=== PATIENT | male | born 1975 | race Two or more races ===

== ENCOUNTER → 2018-08-30 08:46 | Outpatient (CLI) | payer OTHER, SELFPAY ==
--- NOTE | 2018-08-30 08:49 | US_ITS ---
HISTORY: CKD 3 DIFFICULTY URINATING TECHNIQUE: Cardenas scale and color doppler sagittal and transverse images were obtained of the kidneys. COMPARISON: None FINDINGS: Both kidneys show normal size and echogenicity. Renal measurements are approximate as follows: Right kidney 10.4 x 5.2 x 4.5 cm Left kidney 10.2 x 6.2 x 5.7 cm Renal cortical thickness is preserved bilaterally. No hydronephrosis, renal mass, or gross renal calculi. Limited survey of the pelvis was performed with attention urinary bladder. Prevoid bladder volume is 215 cc and postvoid volume is 39 cc. No free pelvic fluid. US/Kidney and Bladder IMPRESSION: 1. Normal renal ultrasound. 2. 39 cc postvoid urinary bladder residual. at [id number] Reported and signed by: Seferino Mccarthy MD Electronically Signed: Seferino Mccarthy, at 3:33 EST Tel , Service support ,
--- OUTSIDE RECORDS SUMMARY | 2018-10-25 14:31 | XMS RPT_ITS ---
:1975 Author Organization [facility] Care Team Providers Name Role Phone ROB IZAGUIRRE Referring Unavailable ROB IZAGUIRRE Referring Unavailable ROB IZAGUIRRE Attending Unavailable ROB IZAGUIRRE Referring Unavailable ROB IZAGUIRRE Referring Unavailable ROB IZAGUIRRE Attending Unavailable ROB IZAGUIRRE Referring Unavailable ROB IZAGUIRRE Attending Unavailable ROB IZAGUIRRE Referring Unavailable ROB IZAGUIRRE Attending Unavailable ROB IZAGUIRRE Referring Unavailable ROB IZAGUIRRE Attending Unavailable Jeremi Noriega Attending Unavailable Jeremi Noriega Referring Unavailable Janine Izaguirre Primary Care Unavailable JANINE IZAGUIRRE Primary Care Unavailable CHERELLE HUBBARD Attending Unavailable PROBLEMS PROBLEMS DATE TYPE CONDITION / CODE ATTENDING STATUS SOURCE 06/14/2017 Active Essential NA Active [place] (primary) [facility] Main hypertension / [place] I10(ICD-10) Repository 04/12/2018 Active Hyperkalemia / NA Active [place] E87.5(ICD-10) Clinic Main [place] Repository 04/12/2018 Active Unspecified NA Active [place] adverse effect of Clinic Main drug or [place] medicament, Repository initial encounter / T88.7XXA(ICD-10) 03/24/2018 Active Unspecified NA Active [place] abdominal pain / Clinic Main R10.9(ICD-10) [place] Repository 03/24/2018 Active Abnormal weight NA Active [place] loss / Clinic Main R63.4(ICD-10) [place] Repository 03/24/2018 Active Tachycardia, NA Active [place] unspecified / Clinic Main R00.0(ICD-10) [place] Repository 03/09/2018 Admitting Dizziness and CHERELLE HUBBARD [facility] diagnosis giddiness / E Repository R42(ICD-9) 03/09/2018 Final diagnosis Syncope and CHERELLE HUBBARD [facility] (discharge) collapse / E Repository R55(ICD-9) 03/09/2018 Final diagnosis Essential CHERELLE HUBBARD [facility] (discharge) (primary) E Repository hypertension / I10(ICD-9) 03/09/2018 Final diagnosis Tobacco use / CHERELLE HUBBARD [facility] (discharge) Z72.0(ICD-9) E Repository 03/09/2018 Final diagnosis Allergy status to CHERELLE HUBBARD [facility] (discharge) analgesic agent E Repository status / Z88.6(ICD-9) PROCEDURES PROCEDURES No Procedure Records FoundRESULTS RESULTS KIDNEY AND BLADDER Observed: 08/30/2018 Status: F Source: [place] 8:49 AM [facility] REPOSITORY [facility] Imaging Services [address] [place] [address] Kidney and Bladder MR#: [id number] Acct: [id number] Name: ANTWON PRADHAN Rep #: [id number] : 1975 M 42 From: Seferino Mccarthy MD PCP: Tamara AGUILLONJanine Status: REG CL Study: Kidney and Bladder Date of Exam: 08/30/18 Exam# [id number] Ordering Dr: Jeremi Noriega MD HISTORY: CKD 3 DIFFICULTY URINATING TECHNIQUE: Cardenas scale and color doppler sagittal and transverse images were obtained of the kidneys. COMPARISON: None FINDINGS: Both kidneys show normal size and echogenicity. Renal measurements are approximate as follows: Right kidney 10.4 x 5.2 x 4.5 cm Left kidney 10.2 x 6.2 x 5.7 cm Renal cortical thickness is preserved bilaterally. No hydronephrosis, renal mass, or gross renal calculi. Limited survey of the pelvis was performed with attention urinary bladder. Prevoid bladder volume is 215 cc and postvoid volume is 39 cc. No free pelvic fluid. US/Kidney and Bladder IMPRESSION: 1. Normal renal ultrasound. 2. 39 cc postvoid urinary bladder residual. at 0335 Reported and signed by: Seferino Mccarthy MD Electronically Signed: Seferino Mccarthy, at 3:33 EST Tel , Service support , CC: Jeremi Noriega MD; Janine Izaguirre MD Chicken Picker: Signed CNNURSE Observed: 07/31/2018 Status: COMPLETED Source: [place] 10:40 AM [facility] REPOSITORY Nurse Visit (FPWADS) ANTWON PRADHAN ([id number]) 1975 M Date Time Provider Department 07/31/18 10:40 AM [facility] During your visit today, we recorded the following information about you: Referring Provider: ROB IZAGUIRRE [[id number]] Allergies As of Date: 07/31/2018 Noted Allergy Reaction ASA (ASPIRIN) 06/16/2016 4 - Hives HCTZ (HYDROCHLOROTHIAZIDE) 04/07/2018 5 - Intolerance Comments: Vague malaise. Date Reviewed: 03/24/2018 Reviewed by: Judy Sheldon Ma - Fully Assessed Reason for Visit: flu vaccine [Other] Primary Visit Diagnosis:Need for vaccination [Z23] Order(s):ADMIN OF INFLUENZA VACCINE [[id number]] Order #: [id number]: 1 INFLUENZA VACCINE QUADRIVALENT AGE 3 YRS PLUS + IM [[id number]] Order #: [id number] Prescriptions as of 07/31/2018 Sig: METOPROLOL SUCCINATE ER 50 MG* Take 1 tablet by mouth once d* CHLORTHALIDONE 25 MG TABLET Take 1 tablet by mouth once d* PAROXETINE 10 MG TABLET Take 1 tablet by mouth once d* BENZONATATE 100 MG CAPSULE Take 1-2 capsules by mouth th* Patient not taking: Reported on 03/15/2018 IBUPROFEN 200 MG TABLET Take 200 mg by mouth every 6 * BLOOD PRESSURE MONITOR KIT Large adult cuff: Dx: (I10) E* Problem List As Of Date 07/31/2018 Noted Resolved Essential hypertension [I10] INVALID FOR* Adjustment disorder with mixed anxiety and depr*INVALID FOR* Encounter Status:Closed by TYREL DICK MA on 07/31/18 BASIC METABOLIC PANL Collected: 04/12/2018 Status: F Source: [place] 7:40 AM [facility] REPOSITORY TYPE CODE TESTS RESULT OUT OF REFERENCE UNITS RANGE LAB GLU 74-99 mg/dL High Glucose 105 Result Comment: The [place] Diabetes [employer] (ADA) provides guidance for cutoff values for fasting glucose and random glucose. The ADA defines fasting as no caloric intake for at least 8 hours. Fas ting plasma glucose results between 100 to 125 mg/dL indicate increased risk for diabetes (prediabetes). Fasting plasma glucose results greater than or equal to 126 mg/dL meet the criteria for diagnosis of diabetes. In the absence of unequivocal hyperglycemia, results should be confirmed by repeat testing. In a patient with classic symptoms of hyperglycemia or hyperglycemic crisis, random plasma glucose results greater than or equal to 200 mg/dL meet the criteria for diagnosis of diabetes. Reference: Standards of Medical Care in Diabetes 2016, [place] [employer]. Diabetes Care. 2016.39(Suppl 1). LAB BUN 9-24 mg/dL BUN 14 LAB CRET 0.73-1.22 mg/dL Creatinine High 1.57 LAB NA 136-144 mmol/L Sodium 139 LAB K 3.7-5.1 mmol/L Potassium 3.9 LAB CL 97-105 mmol/L Chloride 98 LAB CO2 22-30 mmol/L CO2 30 LAB AGAP 9-18 mmol/L Anion Gap 11 LAB CA 8.5-10.2 mg/dL Calcium, Total 9.7 LAB GFRAA eGFR- Amer. 60 LAB GFRNAA . eGFR-All Other Races 49 Result Comment: eGFR (Estimated GFR) Units of measure: mL/min/1.73 meters squared eGFR is derived from the reexpressed MDRD Study equation using the following parameters: serum creatinine, age, gender and race. The creatinine assay has been calibrated to be traceable to IDMS. An eGFR <60 mL/min/1.73m2 for >3 months is consistent with chronic kidney disease. Refer to KDOQI guidelines for clinical interpretation. In patients with unstable renal function, e.g. those with acute kidney injury, the eGFR may not accurately reflect actual GFR. Performed By: #### BMP, WSR #### [facility] [employer] [address] [place], [place] [address] SED RATE WESTERGREN Collected: 04/12/2018 Status: F Source: [place] 7:40 AM [facility] REPOSITORY TYPE CODE TESTS RESULT OUT OF REFERENCE UNITS RANGE LAB WSR 0-15 mm/hr Sed Rate Westergren 5 Performed By: #### BMP, WSR #### [facility] [employer] [address] [place], [place] [address] URINALYSIS Collected: 04/12/2018 Status: F Source: [place] 7:40 AM [facility] REPOSITORY TYPE CODE TESTS RESULT OUT OF REFERENCE UNITS RANGE LAB UCOL Yellow Color Yellow LAB [facility] Clear Clarity Clear LAB UGLUC Negative mg/dL Glucose, Urine Negative LAB UBIL Negative Bilirubin, Urine Negative LAB UKET Negative Ketones, Urine Negative LAB USPG 1.005-1.030 Specific Melber, Ur 1.016 LAB UHGB Negative Hemoglobin/Blood, Negative Ur LAB UPH 4.5-8.0 pH 5.0 LAB UPROT Negative mg/dL Protein, Urine Negative LAB UUROB Normal Urobilinogen Normal LAB UNITR Negative Nitrites Negative LAB ULKEST Negative Leukest Negative LAB UCOM Comments SEE COMMENT Result Comment: Microscopic not warranted LAB UMCOM Urine SEE Basim Comment COMMENT Result Comment: N/A Performed By: #### UA #### [facility] [employer] [address] [place] [id number] PROGRESS Observed: 04/09/2018 Status: COMPLETED Source: [place] 11:50 AM [facility] REPOSITORY HNO ID: [id number] Author: Rob Izaguirre Service: (none) Author Type: Physician Type: Progress Notes Filed: 04/09/2018 11:51 AM Note Text: Blood pressure still high. He is feeling a little better off the hydrochlorothiazide. Now on spironolactone. The blood pressure and pulse remain high. PHYSICAL EXAMINATION BP 158/97 Pulse 102 Temp 36.7 ?C (98 ?F) Resp 24 Wt 97.1 kg (214 lb) SpO2 100% BMI 30.71 kg/m? General: Alert and oriented, no distress, pleasant and cooperative. Heart: Regular, normal S1 and S2, no murmurs, rubs, or gallops Lungs: Clear to auscultation bilaterally Abdomen: Benign Extremities: Feet/ankles without edema, posterior tibial pulses full and symmetrical Blood work shows creatinine is still elevated. Assessment/Plan: (I10) Essential hypertension (primary encounter diagnosis) Comment: Blood pressure not controlled. Renal insufficiency with some progression. Plan: metoprolol succinate ER (TOPROL XL) 50 mg 24 hr tablet, BASIC METABOLIC PNL, UA CHEMSTRIP ONLY Check lab and urine next week (T88.7XXA) Medication side effect Comment: Plan: SED RATE WESTERGREN Consider medication induced symptoms versus other metabolic/ inflammatory process. Signed Prescriptions Disp Refills metoprolol succinate ER (TOPROL XL) 50 mg 24 hr tablet 30 tablet 2 Sig: Take 1 tablet by mouth once daily. RTO: In a couple weeks blood pressure check. Lab next week. Rob Izaguirre MD CNOV Observed: 04/07/2018 Status: COMPLETED Source: [place] 3:40 PM [facility] REPOSITORY Office Visit (FPWADS) ANTWON PRADHAN ([id number]) 1975 M Date Time Provider Department 04/07/18 3:40 PM ROB IZAGUIRRE During your visit today, we recorded the following information about you: Temperature Pulse Respiration Blood pressure 98 degrees 102/minute 24/minute 158/97 Weight 97.1 kg Rob Izaguirre MD 04/09/2018 11:51 AM Signed Blood pressure still high. He is feeling a little better off the hydrochlorothiazide. Now on spironolactone. The blood pressure and pulse remain high. PHYSICAL EXAMINATION BP 158/97 Pulse 102 Temp 36.7 ?C (98 ?F) Resp 24 Wt 97.1 kg (214 lb) SpO2 100% BMI 30.71 kg/m? General: Alert and oriented, no distress, pleasant and cooperative. Heart: Regular, normal S1 and S2, no murmurs, rubs, or gallops Lungs: Clear to auscultation bilaterally Abdomen: Benign Extremities: Feet/ankles without edema, posterior tibial pulses full and symmetrical Blood work shows creatinine is still elevated. Assessment/Plan: (I10) Essential hypertension (primary encounter diagnosis) Comment: Blood pressure not controlled. Renal insufficiency with some progression. Plan: metoprolol succinate ER (TOPROL XL) 50 mg 24 hr tablet, BASIC METABOLIC PNL, UA CHEMSTRIP ONLY Check lab and urine next week (T88.7XXA) Medication side effect Comment: Plan: SED RATE WESTERGREN Consider medication induced symptoms versus other metabolic/ inflammatory process. Signed Prescriptions Disp Refills metoprolol succinate ER (TOPROL XL) 50 mg 24 hr tablet 30 tablet 2 Sig: Take 1 tablet by mouth once daily. RTO: In a couple weeks blood pressure check. Lab next week. Rob Izaguirre MD Referring Provider: ROB IZAGUIRRE [[id number]] Allergies As of Date: 04/07/2018 Noted Allergy Reaction ASA (ASPIRIN) 06/16/2016 4 - Hives HCTZ (HYDROCHLOROTHIAZIDE) 04/07/2018 5 - Intolerance Comments: Vague malaise. Date Reviewed: 03/24/2018 Reviewed by: Judy Sheldon Ma - Fully Assessed Reason for Visit: Recheck [92] Primary Visit Diagnosis:Essential hypertension [I10] Other Visit Diagnosis:Medication side effect [T88.7XXA] Order(s):metoprolol succinate ER (TOPROL XL) 50 mg 24 hr tabletTake 1 tablet by mouth once daily.Disp: 30 tabletRfl: 2 BASIC METABOLIC PNL [SQBMP] Order #: [id number] FUTURE SED RATE WESTERGREN [SQWSR] Order #: [id number] FUTURE UA CHEMSTRIP ONLY [SQUA] Order #: [id number] FUTURE Prescriptions as of 04/07/2018 Sig: METOPROLOL SUCCINATE ER 50 MG* Take 1 tablet by mouth once d* CHLORTHALIDONE 25 MG TABLET Take 1 tablet by mouth once d* PAROXETINE 10 MG TABLET Take 1 tablet by mouth once d* BENZONATATE 100 MG CAPSULE Take 1-2 capsules by mouth th* Patient not taking: Reported on 03/15/2018 IBUPROFEN 200 MG TABLET Take 200 mg by mouth every 6 * BLOOD PRESSURE MONITOR KIT Large adult cuff: Dx: (I10) E* Problem List As Of Date 04/07/2018 Noted Resolved Essential hypertension [I10] INVALID FOR* Adjustment disorder with mixed anxiety and depr*INVALID FOR* Prescriptions ordered this encounter Disp Refills Start End METOPROLOL SUCCINATE ER 50 MG TABLET* 30 t* 2 04/07/2018 Route: ORAL Sig: Take 1 tablet by mouth once daily. Encounter Status:Closed by JANINE IZAGUIRRE MD on 04/09/18 PROGRESS Observed: 03/26/2018 Status: COMPLETED Source: [place] 9:21 AM [facility] REPOSITORY O ID: [id number] Author: Rob Izaguirre Service: (none) Author Type: Physician Type: Progress Notes Filed: 03/26/2018 9:24 AM Note Text: Patient presents in follow-up of high blood pressure, recent renal insufficiency, malaise. Continues not to feel well. Feels like he is not making urine adequately. He has had tachycardia and overall feeling poorly. Continues on hydrochlorothiazide after stopping the Dyazide. Heart rate. PHYSICAL EXAMINATION BP 136/93 Pulse 110 Temp 37.1 ?C (98.7 ?F) Resp 18 Ht 177.8 cm (5' 10) Wt 92.7 kg (204 lb 4.8 oz) SpO2 99% BMI 29.31 kg/m? General: Alert and oriented, no distress, pleasant and cooperative. Heart: Regular, normal S1 and S2, no murmurs, rubs, or gallops Lungs: Clear to auscultation bilaterally Abdomen: Benign Extremities: Feet/ankles without edema, posterior tibial pulses full and symmetrical Assessment/Plan: (R10.9) Bilateral flank pain (primary encounter diagnosis) Comment: Undetermined cause. Suspect ill effects from medications. Rule out more serious metabolic derangement. Plan: [place] CBC AND DIFF, BASIC METABOLIC PNL, HEPATIC FUNCTION PNL, UA DIP, URINE (POC) Labs ordered. (R63.4) Abnormal weight loss Comment: Recent thyroid blood work was okay. creatinine has been elevated Plan: [place] CBC AND DIFF, BASIC METABOLIC PNL, HEPATIC FUNCTION PNL, UA DIP, URINE (POC) The urine does not show any abnormality (R00.0) Tachycardia Comment: Plan: ECG COMPLETE W INTERPRETATION, [place] CBC AND DIFF, BASIC METABOLIC PNL, HEPATIC FUNCTION PNL, UA DIP, URINE (POC) EKG shows sinus tachycardia only. (R10.9) Flank pain Comment: negative urinalysis. Plan:See what the lab shows. No medications selected for refill. RTO: Next week. Rob Izaguirre MD [place] CBC AND DIFF Collected: 03/24/2018 Status: F Source: [place] 12:14 PM [facility] REPOSITORY TYPE CODE TESTS RESULT OUT OF REFERENCE UNITS RANGE LAB WWBC 3.70-11.00 k/uL [place] WBC 6.09 LAB WRBC 4.20-6.00 m/uL [place] RBC 5.71 LAB WHGB 13.0-17.0 g/dL [place] Hemoglobin 16.7 LAB WHCT 39.0-51.0 % [place] Hematocrit 47.1 LAB WMCV 80.0-100.0 fL [place] MCV 82.5 LAB WMCH 26.0-34.0 pg [place] MCH 29.2 LAB WMCHC 30.5-36.0 g/dL [place] MCHC 35.5 LAB WRDW 11.5-15.0 % [place] RDW 13.4 LAB WPLT 150-400 k/uL [place] Platelet Cnt 239 LAB WMPV 9.0-12.7 fL [place] MPV 10.2 Result Comment: Test performed by: [facility] [place], [address] [place] [address]. LAB WNEUT % [place] Neut% 54.0 LAB WLYMP % [place] Lymp% 34.3 LAB WMONOC % [place] Trimble% 11.2 LAB WEOS % [place] Eos% 0.3 LAB WBASO % [place] Baso% 0.2 LAB WANEUT 1.45-7.50 k/uL [place] Abs Neut 3.29 LAB WALYMP 1.00-4.00 k/uL [place] Abs Lymp 2.09 LAB WAMONO <0.87 k/uL [place] Abs Trimble 0.68 LAB WAEOS <0.46 k/uL [place] Abs Eos <0.03 LAB WABASO <0.11 k/uL [place] Abs Baso <0.03 BASIC METABOLIC PANL Collected: 03/24/2018 Status: F Source: [place] 12:14 PM [facility] REPOSITORY TYPE CODE TESTS RESULT OUT OF REFERENCE UNITS RANGE LAB GLU 74-99 mg/dL Glucose 94 Result Comment: The [place] Diabetes [employer] (ADA) provides guidance for cutoff values for fasting glucose and random glucose. The ADA defines fasting as no caloric intake for at least 8 hours. Fas ting plasma glucose results between 100 to 125 mg/dL indicate increased risk for diabetes (prediabetes). Fasting plasma glucose results greater than or equal to 126 mg/dL meet the criteria for diagnosis of diabetes. In the absence of unequivocal hyperglycemia, results should be confirmed by repeat testing. In a patient with classic symptoms of hyperglycemia or hyperglycemic crisis, random plasma glucose results greater than or equal to 200 mg/dL meet the criteria for diagnosis of diabetes. Reference: Standards of Medical Care in Diabetes 2016, [place] [employer]. Diabetes Care. 2016.39(Suppl 1). LAB BUN 9-24 mg/dL BUN 15 LAB CRET 0.73-1.22 mg/dL Creatinine High 1.56 LAB NA 136-144 mmol/L Sodium 136 LAB K 3.7-5.1 mmol/L Potassium 3.8 LAB CL 97-105 mmol/L Low Chloride 92 LAB CO2 22-30 mmol/L CO2 24 LAB AGAP 9-18 mmol/L Anion Gap High 20 LAB CA 8.5-10.2 mg/dL Calcium, Total 10.1 LAB GFRAA eGFR- Amer. 60 LAB GFRNAA . eGFR-All Other Races 50 Result Comment: eGFR (Estimated GFR) Units of measure: mL/min/1.73 meters squared eGFR is derived from the reexpressed MDRD Study equation using the following parameters: serum creatinine, age, gender and race. The creatinine assay has been calibrated to be traceable to IDMS. An eGFR <60 mL/min/1.73m2 for >3 months is consistent with chronic kidney disease. Refer to KDOQI guidelines for clinical interpretation. In patients with unstable renal function, e.g. those with acute kidney injury, the eGFR may not accurately reflect actual GFR. Performed By: #### BMP, [facility] #### [facility] [address] [place], [place] [address] HEPATIC FUNCTN PANEL Collected: 03/24/2018 Status: F Source: [place] 12:14 PM [facility] REPOSITORY TYPE CODE TESTS RESULT OUT OF REFERENCE UNITS RANGE LAB ALB 3.9-4.9 g/dL Albumin High 5.0 LAB TBIL 0.2-1.3 mg/dL Bilirubin, Total 0.7 LAB CBIL <0.2 mg/dL Bilirubin,Conjuga <0.2 lamberto LAB ALKP 36-108 U/L Alkaline Phosphatase 97 LAB AST 14-40 U/L AST 34 LAB ALT 10-54 U/L ALT 26 LAB TP 6.3-8.0 g/dL Protein, High Total 8.6 Performed By: #### BMP, HFP #### [facility] [address] [place], [place] [address] CNOV Observed: 03/24/2018 Status: COMPLETED Source: [place] 10:40 AM [facility] REPOSITORY Office Visit (FPWADS) ANTWON PRADHAN ([id number]) 1975 M Date Time Provider Department 03/24/18 10:40 AM ROB IZAGUIRRE FPROSANNA During your visit today, we recorded the following information about you: Temperature Pulse Respiration Blood pressure 98.7 degrees 110/minute 18/minute 136/93 Weight Height 92.7 kg 1.778 m Rob Izaguirre MD 03/26/2018 9:24 AM Signed Patient presents in follow-up of high blood pressure, recent renal insufficiency, malaise. Continues not to feel well. Feels like he is not making urine adequately. He has had tachycardia and overall feeling poorly. Continues on hydrochlorothiazide after stopping the Dyazide. Heart rate. PHYSICAL EXAMINATION BP 136/93 Pulse 110 Temp 37.1 ?C (98.7 ?F) Resp 18 Ht 177.8 cm (5' 10) Wt 92.7 kg (204 lb 4.8 oz) SpO2 99% BMI 29.31 kg/m? General: Alert and oriented, no distress, pleasant and cooperative. Heart: Regular, normal S1 and S2, no murmurs, rubs, or gallops Lungs: Clear to auscultation bilaterally Abdomen: Benign Extremities: Feet/ankles without edema, posterior tibial pulses full and symmetrical Assessment/Plan: (R10.9) Bilateral flank pain (primary encounter diagnosis) Comment: Undetermined cause. Suspect ill effects from medications. Rule out more serious metabolic derangement. Plan: [place] CBC AND DIFF, BASIC METABOLIC PNL, HEPATIC FUNCTION PNL, UA DIP, URINE (POC) Labs ordered. (R63.4) Abnormal weight loss Comment: Recent thyroid blood work was okay. creatinine has been elevated Plan: A[place]KSANDR CBC AND DIFF, BASIC METABOLIC PNL, HEPATIC FUNCTION PNL, UA DIP, URINE (POC) The urine does not show any abnormality (R00.0) Tachycardia Comment: Plan: ECG COMPLETE W INTERPRETATION, [place] CBC AND DIFF, BASIC METABOLIC PNL, HEPATIC FUNCTION PNL, UA DIP, URINE (POC) EKG shows sinus tachycardia only. (R10.9) Flank pain Comment: negative urinalysis. Plan:See what the lab shows. No medications selected for refill. RTO: Next week. Rob Izaguirre MD Referring Provider: ROB IZAGUIRRE [[id number]] Allergies As of Date: 03/24/2018 Noted Allergy Reaction ASA (ASPIRIN) 06/16/2016 4 - Hives Date Reviewed: 03/24/2018 Reviewed by: Judy Sheldon Ma - Fully Assessed Reason for Visit: Recheck [92] Primary Visit Diagnosis:Bilateral flank pain [R10.9] Other Visit Diagnoses:Abnormal weight loss [R63.4] Tachycardia [R00.0] Flank pain [R10.9] Order(s):ECG COMPLETE W INTERPRETATION [ECG01] Order #: [id number] FUTURE [place] CBC AND DIFF [SQWCBCDF] Order #: [id number] FUTURE BASIC METABOLIC PNL [SQBMP] Order #: [id number] FUTURE HEPATIC FUNCTION PNL [SQHFP] Order #: [id number] FUTURE UA DIP, URINE (POC) [[id number]] Order #: [id number]. #:[id number] COMPLETE ECG [] Order #: [id number]. #:[id number] Prescriptions as of 03/24/2018 Sig: HYDROCHLOROTHIAZIDE 25 MG TAB* Take 1 tablet by mouth once d* PAROXETINE 10 MG TABLET Take 1 tablet by mouth once d* BLOOD PRESSURE MONITOR KIT Large adult cuff: Dx: (I10) E* BENZONATATE 100 MG CAPSULE Take 1-2 capsules by mouth th* Patient not taking: Reported on 03/15/2018 IBUPROFEN 200 MG TABLET Take 200 mg by mouth every 6 * Problem List As Of Date 03/24/2018 Noted Resolved Essential hypertension [I10] INVALID FOR* Adjustment disorder with mixed anxiety and depr*INVALID FOR* Encounter Status:Closed by JANINE IZAGUIRRE MD on 03/26/18 EKG1 Observed: 03/24/2018 Status: F Source: [place] 10:15 AM [facility] REPOSITORY NAME : ANTWON PRADHAN PID : [id number] : 1975 Gender : Male Race : ORD : Procedure Date : Mar 24 2018 10:15:17 Edit Date : Mar 26 2018 15:10:28 Diagnosis:SINUS TACHYCARDIA OTHERWISE NORMAL ECG Confirmed by MELLY CHAU MD ([id number]) on 03/26/2018 3:10:22 PM Ventricular Rate : 114 BPM Atrial Rate : 114 BPM P-R Interval : 148 ms QRS Duration : 80 ms Q-T Interval : 328 ms QTC Calculation(Bezet) : 452 ms P [place] : 79 degrees R [place] : 74 degrees T [place] : 75 degrees Test Reason : Location : 521 : DEDEX Overread By : MELLY CHAU MD Edited By : MELLY CHAU MD Referred By : rob izaguirre Acquired by : LUZMARIA phillips Observed: 03/16/2018 Status: COMPLETED Source: [place] 12:00 AM [facility] REPOSITORY Telephone (FPWADS) ANTWON PRADHAN ([id number]) 1975 M Date Time Provider Department 03/16/18 ROB IZAGUIRRE During your visit today, we recorded the following information about you: Rob Izaguirre MD 03/16/2018 12:34 PM Signed The creatinine is high at 1.5 , go ahead with the lower strength water pill, but get back in with me in the next week. MD Johnny Navarro 03/16/2018 3:51 PM Signed Called pt and left detailed VM with message below. Advised to CB with any questions/concerns and to schedule apt. Sabiha Joseph, RN, RN 03/16/2018 4:37 PM Signed Notified patient of providers message below, patient verbalized understanding. Patient explained that he noticed his blood sugar was low. Patient was planning to drink a pop as he felt shaky, weak, and sweaty as well. Also advised patient eat peanut butter, milk, or cheese. Patient feels like heart rate is faster than yesterday and is fluttering. Advised patient go to ED if HR and flutter seems worse than yesterday. Patient verbalized understanding. Denied chest pain or sob. Please advise of any other recommendations. Rob Izaguirre MD 03/16/2018 5:23 PM Signed The blood sugar is a bit low, not that worrisome, he's not on meds that'll lower his sugar. Agree with nurse's advice about the snacks. MD Johnny Navarro 03/16/2018 5:29 PM Signed Noted. Alexa Dhaliwal 03/17/2018 8:02 AM Signed Patient has appt scheduled for 03/24/18. Allergies As of Date: 03/16/2018 Noted Allergy Reaction ASA (ASPIRIN) 06/16/2016 4 - Hives Date Reviewed: 03/15/2018 Reviewed by: Johnny Berry - Fully Assessed Reason for Visit: Results [95] Cmt: labs Prescriptions as of 03/16/2018 Sig: HYDROCHLOROTHIAZIDE 25 MG TAB* Take 1 tablet by mouth once d* PAROXETINE 10 MG TABLET Take 1 tablet by mouth once d* BENZONATATE 100 MG CAPSULE Take 1-2 capsules by mouth th* Patient not taking: Reported on 03/15/2018 IBUPROFEN 200 MG TABLET Take 200 mg by mouth every 6 * BLOOD PRESSURE MONITOR KIT Large adult cuff: Dx: (I10) E* Problem List As Of Date 03/16/2018 Noted Resolved Essential hypertension [I10] INVALID FOR* Adjustment disorder with mixed anxiety and depr*INVALID FOR* Encounter Status:Closed by JOHNNY BERRY on 03/16/18 CBC Collected: 03/15/2018 Status: F Source: [place] 11:00 PM [facility] REPOSITORY TYPE CODE TESTS RESULT OUT OF REFERENCE UNITS RANGE LAB WBC 3.70-11.00 k/uL WBC 8.32 LAB RBC 4.20-6.00 m/uL RBC 5.41 LAB HGB 13.0-17.0 g/dL Hemoglobin 15.6 LAB HCT 39.0-51.0 % Hematocrit 46.0 LAB MCV 80.0-100.0 fL MCV 85.0 LAB MCH 26.0-34.0 pG MCH 28.8 LAB MCHC 30.5-36.0 g/dL MCHC 33.9 LAB RDWCV 11.5-15.0 % RDW-CV 13.8 LAB PLTCT 150-400 k/uL Platelet Count 256 LAB MPV 9.0-12.7 fL MPV 11.1 LAB ABSNUC <0.01 k/uL Absolute nRBC <0.01 Performed By: #### CBC, BMP, TSH #### [facility] [address] [id number] BASIC METABOLIC PANL Collected: 03/15/2018 Status: F Source: [place] 11:00 PM [facility] REPOSITORY TYPE CODE TESTS RESULT OUT OF REFERENCE UNITS RANGE LAB GLU 74-99 mg/dL Low Glucose 59 Result Comment: The [place] [employer] (ADA) provides guidance for cutoff values for fasting glucose and random glucose. The ADA defines fasting as no caloric intake for at least 8 hours. Fas ting plasma glucose results between 100 to 125 mg/dL indicate increased risk for diabetes (prediabetes). Fasting plasma glucose results greater than or equal to 126 mg/dL meet the criteria for diagnosis of diabetes. In the absence of unequivocal hyperglycemia, results should be confirmed by repeat testing. In a patient with classic symptoms of hyperglycemia or hyperglycemic crisis, random plasma glucose results greater than or equal to 200 mg/dL meet the criteria for diagnosis of diabetes. Reference: Standards of Medical Care in Diabetes 2016, [place] [employer]. Diabetes Care. 2016.39(Suppl 1). LAB BUN 9-24 mg/dL BUN 19 LAB CRET 0.73-1.22 mg/dL Creatinine High 1.50 LAB NA 136-144 mmol/L Sodium 141 LAB K 3.7-5.1 mmol/L Potassium 4.7 LAB CL 97-105 mmol/L Low Chloride 95 LAB CO2 22-30 mmol/L CO2 28 LAB AGAP 9-18 mmol/L Anion Gap 18 LAB CA 8.5-10.2 mg/dL Calcium, Total 9.4 LAB GFRAA eGFR- Amer. >60 LAB GFRNAA . eGFR-All Other Races 52 Result Comment: eGFR (Estimated GFR) Units of measure: mL/min/1.73 meters squared eGFR is derived from the reexpressed MDRD Study equation using the following parameters: serum creatinine, age, gender and race. The creatinine assay has been calibrated to be traceable to IDMS. An eGFR <60 mL/min/1.73m2 for >3 months is consistent with chronic kidney disease. Refer to KDOQI guidelines for clinical interpretation. In patients with unstable renal function, e.g. those with acute kidney injury, the eGFR may not accurately reflect actual GFR. Performed By: #### CBC, BMP, TSH #### [facility] [employer] [address] [address] TSH Collected: 03/15/2018 Status: F Source: [place] 11:00 PM [facility] REPOSITORY TYPE CODE TESTS RESULT OUT OF RANGE REFERENCE UNITS LAB TSH 0.400-5.500 uU/mL TSH 1.640 Performed By: #### CBC, BMP, TSH #### [facility] [employer] [id number] [id number] PROGRESS Observed: 03/15/2018 Status: COMPLETED Source: [place] 4:31 PM [facility] REPOSITORY HNO ID: [id number] Author: Rob Izaguirre Service: (none) Author Type: Physician Type: Progress Notes Filed: 03/17/2018 9:26 AM Note Text: Chief Complaint Patient presents with: Syncope: 2 episodes, went to ER 03/09/18 HPI Antwon Pradhan is a 42 year old male who presents here today for follow-up of syncope. He felt strange and passed out at work. ER visit. IV fluids. Still not feeling well. . Note he had new Rx for dyazide prior to the episode. Past medical history, appointments, medications, allergies reviewed. Previous Medical History No past medical history on file. Previous Surgical History No past surgical history on file. Family History FAMILY HISTORY Problem Relation Age of Onset - Hypertension Father 40 - Diabetes Father 60 Patient Allergies ALLERGIES Allergen Reactions - Asa [Aspirin] Hives Current Medications Current Outpatient Prescriptions on File Prior to Visit: PARoxetine (PAXIL) 10 mg tablet Take 1 tablet by mouth once daily. triamterene-hydrochlorothiazide (DYAZIDE) 37.5-25 mg per capsule Take 1 capsule by mouth once daily. Blood Pressure Monitor kit Large adult cuff: Dx: (I10) Essential hypertension (primary encounter diagnosis) benzonatate (TESSALON PERLE) 100 mg capsule Take 1-2 capsules by mouth three times daily as needed. (Patient not taking: Reported on 03/15/2018 ) ibuprofen (MOTRIN) 200 mg tablet Take 200 mg by mouth every 6 hours as needed. No current facility-administered medications on file prior to visit. 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 Diet not too healthy ROS: General: Feels well, no weight changes, fever, chills. HEENT: No sinus congestion, earache, sore throat. Cardiac: No chest pain, palpitations, shortness of breath Resp: No cough, wheeze. GI: No reflux symptoms, food intolerance, bowel changes. : No urinary frequency, dysuria. MS: No pain or joint complaints. PHYSICAL EXAMINATION BP 158/87 Pulse 114 Wt 94.3 kg (208 lb) SpO2 99% BMI 29.84 kg/m? Last 1 Encounter BP Readings: Date: BP: 03/15/2018 152/97 His pulse is regular, rapid General: Alert and oriented, no distress, pleasant and cooperative. Heart: Regular, normal S1 and S2, no murmurs, rubs, or gallops Lungs: Clear to auscultation bilaterally Abdomen: Benign Extremities: Feet/ankles without edema, posterior tibial pulses full and symmetrical Health Maintenance List LIPID SCREEN due on 07/10/2021 DTAP,TDAP,TD(2 - Td) due on 07/12/2026 INFLUENZA Completed Data reviewed ER visit Assessment/Plan: (R00.0) Tachycardia (primary encounter diagnosis) Comment: with syncopal episode, ER visit. Plan: TSH BLD, CBC, BASIC METABOLIC PNL, TSH BLD, CBC, BASIC METABOLIC PNL Stop the dyazide, resume HCTZ , lab, BP check next week (R55) Vasovagal syncope Comment: Plan: TSH BLD, CBC, BASIC METABOLIC PNL, TSH BLD, CBC, BASIC METABOLIC PNL As above (I10) Essential hypertension Comment: bp high but med side effects. Plan: hydroCHLOROthiazide (HYDRODIURIL, ESIDRIX) 25 mg tablet Resume previously tolerated med. Signed Prescriptions Disp Refills hydroCHLOROthiazide (HYDRODIURIL, ESIDRIX) 25 mg tablet 0 Sig: Take 1 tablet by mouth once daily. DEMARCUS: No RTO: next week. Rob Izaguirre MD PROGRESS Observed: 03/15/2018 Status: COMPLETED Source: [place] 4:31 PM [facility] REPOSITORY HNO ID: [id number] Author: Johnny Berry Service: (none) Author Type: (none) Type: Progress Notes Filed: 03/17/2018 9:26 AM Note Text: There are no preventive care reminders to display for this patient. CNOV Observed: 03/15/2018 Status: COMPLETED Source: [place] 4:20 PM [facility] REPOSITORY Office Visit (FPWADS) ANTWON PRADHAN ([id number]) 1975 M Date Time Provider Department 03/15/18 4:20 PM ROB IZAGUIRRE During your visit today, we recorded the following information about you: Pulse Blood pressure Weight 111/minute 152/97 94.3 kg Johnny Berry 03/17/2018 9:26 AM Signed There are no preventive care reminders to display for this patient. Rob Izaguirre MD 03/17/2018 9:26 AM Signed Chief Complaint Patient presents with: Syncope: 2 episodes, went to ER 03/09/18 HPI Antwon Pradhan is a 42 year old male who presents here today for follow-up of syncope. He felt strange and passed out at work. ER visit. IV fluids. Still not feeling well. . Note he had new Rx for dyazide prior to the episode. Past medical history, appointments, medications, allergies reviewed. Previous Medical History No past medical history on file. Previous Surgical History No past surgical history on file. Family History FAMILY HISTORY Problem Relation Age of Onset - Hypertension Father 40 - Diabetes Father 60 Patient Allergies ALLERGIES Allergen Reactions - Asa [Aspirin] Hives Current Medications Current Outpatient Prescriptions on File Prior to Visit: PARoxetine (PAXIL) 10 mg tablet Take 1 tablet by mouth once daily. triamterene-hydrochlorothiazide (DYAZIDE) 37.5-25 mg per capsule Take 1 capsule by mouth once daily. Blood Pressure Monitor kit Large adult cuff: Dx: (I10) Essential hypertension (primary encounter diagnosis) benzonatate (TESSALON PERLE) 100 mg capsule Take 1-2 capsules by mouth three times daily as needed. (Patient not taking: Reported on 03/15/2018 ) ibuprofen (MOTRIN) 200 mg tablet Take 200 mg by mouth every 6 hours as needed. No current facility-administered medications on file prior to visit. 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 Diet not too healthy ROS: General: Feels well, no weight changes, fever, chills. HEENT: No sinus congestion, earache, sore throat. Cardiac: No chest pain, palpitations, shortness of breath Resp: No cough, wheeze. GI: No reflux symptoms, food intolerance, bowel changes. : No urinary frequency, dysuria. MS: No pain or joint complaints. PHYSICAL EXAMINATION BP 158/87 Pulse 114 Wt 94.3 kg (208 lb) SpO2 99% BMI 29.84 kg/m? Last 1 Encounter BP Readings: Date: BP: 03/15/2018 152/97 His pulse is regular, rapid General: Alert and oriented, no distress, pleasant and cooperative. Heart: Regular, normal S1 and S2, no murmurs, rubs, or gallops Lungs: Clear to auscultation bilaterally Abdomen: Benign Extremities: Feet/ankles without edema, posterior tibial pulses full and symmetrical Health Maintenance List LIPID SCREEN due on 07/10/2021 DTAP,TDAP,TD(2 - Td) due on 07/12/2026 INFLUENZA Completed Data reviewed ER visit Assessment/Plan: (R00.0) Tachycardia (primary encounter diagnosis) Comment: with syncopal episode, ER visit. Plan: TSH BLD, CBC, BASIC METABOLIC PNL, TSH BLD, CBC, BASIC METABOLIC PNL Stop the dyazide, resume HCTZ , lab, BP check next week (R55) Vasovagal syncope Comment: Plan: TSH BLD, CBC, BASIC METABOLIC PNL, TSH BLD, CBC, BASIC METABOLIC PNL As above (I10) Essential hypertension Comment: bp high but med side effects. Plan: hydroCHLOROthiazide (HYDRODIURIL, ESIDRIX) 25 mg tablet Resume previously tolerated med. Signed Prescriptions Disp Refills hydroCHLOROthiazide (HYDRODIURIL, ESIDRIX) 25 mg tablet 0 Sig: Take 1 tablet by mouth once daily. DEMARCUS: No RTO: next week. MD Johnny Navarro 03/15/2018 5:00 PM Signed Venipuncture performed to right antecubital. Number of tubes collected: 1 gold and 1 lavender. Referring Provider: ROB IZAGUIRRE [[id number]] Allergies As of Date: 03/15/2018 Noted Allergy Reaction ASA (ASPIRIN) 06/16/2016 4 - Hives Date Reviewed: 03/15/2018 Reviewed by: Johnny Berry - Fully Assessed Reason for Visit: Syncope [106] Cmt: 2 episodes, went to ER 03/09/18, today feeling winded Reason For Visit History Recorded Primary Visit Diagnosis:Tachycardia [R00.0] Other Visit Diagnoses:Vasovagal syncope [R55] Essential hypertension [I10] Order(s):TSH BLD [SQTSH] Order #: [id number] FUTURE CBC [SQCBC] Order #: [id number] FUTURE BASIC METABOLIC PNL [SQBMP] Order #: [id number] FUTURE hydroCHLOROthiazide (HYDRODIURIL, ESIDRIX) 25 mg tabletTake 1 tablet by mouth once daily.Disp: Rfl: 0 TSH BLD [SQTSH] Order #: [id number]. #:[id number] CBC [SQCBC] Order #: [id number]. #:[id number] BASIC METABOLIC PNL [SQBMP] Order #: [id number]. #:[id number] Prescriptions as of 03/15/2018 Sig: PAROXETINE 10 MG TABLET Take 1 tablet by mouth once d* BLOOD PRESSURE MONITOR KIT Large adult cuff: Dx: (I10) E* HYDROCHLOROTHIAZIDE 25 MG TAB* Take 1 tablet by mouth once d* BENZONATATE 100 MG CAPSULE Take 1-2 capsules by mouth th* Patient not taking: Reported on 03/15/2018 IBUPROFEN 200 MG TABLET Take 200 mg by mouth every 6 * Problem List As Of Date 03/15/2018 Noted Resolved Essential hypertension [I10] INVALID FOR* Adjustment disorder with mixed anxiety and depr*INVALID FOR* Visit Notes: >> Johnny Berry TueMar 15, 2018 4:59 PM Status: Signed Venipuncture performed to right antecubital. Number of tubes collected: 1 gold and 1 lavender. Prescriptions ordered this encounter Disp Refills Start End HYDROCHLOROTHIAZIDE 25 MG TABLET 0 03/15/2018 Class: Med Update Route: ORAL Sig: Take 1 tablet by mouth once daily. Medications Discontinued During This Encounter triamterene-hydrochlorothiazide (DYA* 30 c* 5 02/24/2018 03/15/2018 Route: ORAL Sig: Take 1 capsule by mouth once daily. Disc: Reason for discontinue is not on file. Encounter Status:Closed by JANINE IZAGUIRRE MD on 03/17/18 CNCO Observed: 03/15/2018 Status: COMPLETED Source: [place] 12:00 AM [facility] REPOSITORY Letter Text Rob Izaguirre MD [address] [place] [address] TO WHOM IT MAY CONCERN: This is to confirm that Antwon Pradhan had an appointment and was seen at the [facility] in the Department of Family Medicine by Dr. Rob Izaguirre on 03/15/2018. Please excuse him from work for the morning. Sincerely yours, Rob Izaguirre MD (Electronically signed to expedite processing) URINALYSIS WITH REFLEX Collected: 03/09/2018 Status: F Source: [facility] [employer] CULTURE 2:57 PM REPOSITORY TYPE CODE TESTS RESULT OUT OF REFERENCE UNITS RANGE LAB UCOLR(LOIN C) Color Straw LAB UAPP(LOINC Clear ) Appearance Clear LAB USPG(LOINC 1.003-1.035 ) Specific Melber 1.011 LAB UPH(LOINC) 5.0-9.0 pH 7.0 LAB ULEU(LOINC Negative ) Leukocytes Esterase Negative LAB UNIT(LOINC Negative ) Nitrite Negative LAB UPRO(LOINC Negative mg/dL ) Protein Negative LAB UGLU(LOINC Negative mg/dL ) Glucose Negative LAB UKET(LOINC Negative mg/dL ) Ketones Negative LAB UURO(LOINC Negative mg/dL ) Urobilinogen <2.0 LAB UBIL(LOINC Negative ) Bilirubin Negative LAB UBLD(LOINC Negative ) Blood Negative LAB UASA(LOINC Negative mg/dL ) Ascorbic Acid Negative LAB UMICP(LOIN C) Automated Urine Microscopy Not indicated Performed By: #### [id number] #### [facility] [address] [place] [address] CHEST SINGLE VIEW Observed: 03/09/2018 Status: F Source: [facility] [employer] PORT PA OR AP 1:42 PM REPOSITORY DATE OF EXAM: Mar 09 2018 1:42PM CLINICAL HISTORY/ Patient Name: ANTWON SEGURA STUDY: CHEST SINGLE VIEW PORT PA OR AP; 03/09/2018 1:42 pm INDICATION: Brain Attack. COMPARISON: None. ACCESSION NUMBER(S): [id number] ORDERING CLINICIAN: CHERELLE HUBBARD FINDINGS: The heart is not enlarged. No infiltrate, pleural effusion or pneumothorax is seen. CONCLUSION: IMPRESSION: No active cardiopulmonary disease. CT BRAIN ATTACK W/O Observed: 03/09/2018 Status: F Source: [facility] [employer] CONTRAST 12:27 PM REPOSITORY DATE OF EXAM: Mar 09 2018 12:27PM CLINICAL HISTORY/ Patient Name: ANTWON ATKINSON STUDY: CT BRAIN ATTACK W/O CONTRAST; 03/09/2018 12:27 pm INDICATION: Brain Attack. COMPARISON: None. ACCESSION NUMBER(S): [id number] ORDERING CLINICIAN: CHERELLE HUBBARD TECHNIQUE: Noncontrast axial CT scan of head was performed. Angled reformats in brain and bone windows were generated. The images were reviewed in bone, brain, blood and soft tissue windows. FINDINGS: CSF Spaces: The ventricles, sulci and basal cisterns are within normal limits. There is no extraaxial fluid collection. Parenchyma: The luciano-white differentiation is intact. There is no mass effect or midline shift. There is no intracranial hemorrhage. Calvarium: The calvarium is unremarkable. Paranasal sinuses and mastoids: Visualized paranasal sinuses and mastoids are clear. CONCLUSION: IMPRESSION: No evidence of acute cortical ischemia or intracranial hemorrhage. Findings discussed with Dr. Bowles by Dr. Coppola at 12:30 p.m. on 03/09/2018. PROTHROMBIN TIME Collected: 03/09/2018 Status: F Source: [facility] 12:21 PM HEALTHCARE REPOSITORY TYPE CODE TESTS RESULT OUT OF RANGE REFERENCE UNITS LAB PTI(LOINC) 9.8-12.7 sec PT 12.4 Result Comment: PLEASE NOTE NEW REFERENCE RANGE EFFECTIVE 2017 LAB INR(LOINC) 0.90-1.10 High INR 1.12 Result Comment: PLEASE NOTE NEW REFERENCE RANGE EFFECTIVE 2017 Performed By: #### [id number] #### [facility] [address] [place] [address] PARTIAL THROMBOPLASTIN Collected: 03/09/2018 Status: F Source: [facility] TIME 12:21 PM HEALTHCARE REPOSITORY TYPE CODE TESTS RESULT OUT OF REFERENCE UNITS RANGE LAB PTT(LOINC) 25.0-36.0 sec Partial Thromboplastin Time 28.7 Result Comment: PLEASE NOTE NEW REFERENCE RANGE EFFECTIVE 2017 . The APTT is no longer used for monitoring Unfractionated Heparin Therapy. For monitoring Heparin Therapy, use the Heparin Assay. Performed By: #### [id number] #### [facility] [address] [place] [address] COMPREHENSIVE METABOLIC Collected: 03/09/2018 Status: F Source: [facility] PANEL 12:21 PM HEALTHCARE REPOSITORY TYPE CODE TESTS RESULT OUT OF REFERENCE UNITS RANGE LAB GLU(LOINC) 70-100 mg/dL Glucose High 119 LAB UREA(LOINC 6-23 mg/dL ) Urea Nitrogen 18 LAB CREAT(LOIN 0.50-1.30 mg/dL C) High Creatinine 1.49 LAB GFR(LOINC) Glomerular >60 Filtration Rate Result Comment: Interpretation for Chronic Kidney Disease: Stages 1&2 >60 Healthy or potential kidney damage. Mild decrease of GFR. Stage 3 30-59 Moderate decrease of GFR. Stage 4 15-29 Severe decrease of GFR. Stage 5 <15 Kidney failure or on dialysis. Corrected; previously reported as 52 Race is unknown or not pro calculated as non-. Please interpret with caution. Interpretation for Chronic Kidney Disease: Stages 1&2 >60 Healthy or potential kidney damage. Mild decrease of GFR. Stage 3 30-59 Moderate decrease of GFR. Stage 4 15-29 Severe decrease of GFR. Stage 5 <15 Kidney failure or on dialysis. on 03/09/18 at LAB CA(LOINC) 8.6-10.3 mg/dL Calcium 10.0 LAB SOD(LOINC) 136-145 mmol/L Sodium Low 135 LAB POT(LOINC) 3.5-5.1 mmol/L Potassium 3.6 LAB CHLOR(LOINC) 98-107 mmol/L Chloride 98 LAB BICAR(LOINC) 21-32 mmol/L Bicarbonate 27 LAB ALB(LOINC) 3.4-5.0 g/dL Albumin 4.8 LAB BILIT(LOINC) 0.0-1.2 mg/dL Bilirubin, Total 0.8 LAB ALP(LOINC) 45-117 U/L Alkaline Phosphatase 93 LAB TP(LOINC) 6.4-8.2 g/dL Total High Protein 8.5 LAB ALT(LOINC) 10-52 U/L ALT (SGPT) 30 LAB AST(LOINC) 13-39 U/L AST (SGOT) 25 LAB ANGAP(LOINC) 10-20 mmol/L Anion Gap 14 LAB AGRAT(LOINC) 0.9-2.4 A/G Ratio 1.3 LAB BCRAT(LOINC) 5-25 Urea/Creatinine Ratio 12 Performed By: #### [id number] #### [facility] [address] [place] [address] CREATINE KINASE Collected: 03/09/2018 Status: F Source: [facility] 12:21 PM REPOSITORY TYPE CODE TESTS RESULT OUT OF REFERENCE UNITS RANGE LAB CK(LOINC) 0-325 U/L High Creatine 461 Kinase Performed By: #### [id number] #### [facility] [address] [place] [address] MAGNESIUM Collected: 03/09/2018 Status: F Source: [facility] 12:21 PM REPOSITORY TYPE CODE TESTS RESULT OUT OF REFERENCE UNITS RANGE LAB MG(LOINC) 1.6-2.4 mg/dL Magnesium 2.0 Performed By: #### [id number] #### [facility] [address] [place] [address] C-REACTIVE PROTEIN, Collected: 03/09/2018 Status: F Source: [facility] HIGH SENSITIVITY 12:21 PM HEALTHCARE REPOSITORY TYPE CODE TESTS RESULT OUT OF REFERENCE UNITS RANGE LAB HSCRP(LOIN mg/L C) C-Reactive High Protein, High 10.20 Sensitivity Result Comment: < 1.0 LOW RELATIVE RISK OF CVD 1.0 - 3.0 AVERAGE RELATIVE RISK OF CVD > 3.0 HIGH RELATIVE RISK OF CVD Performed By: #### [id number] #### [facility] [address] [id number] TROPONIN Collected: 03/09/2018 Status: F Source: [facility] 12:21 PM REPOSITORY TYPE CODE TESTS RESULT OUT OF REFERENCE UNITS RANGE LAB TROP(LOINC) 0.000-0.040 ng/mL Troponin <0.020 Result Comment: <0.04 : Negative 0.04 - 0.50 : Possible Cardiac Damage >0.50 : Consistent with Cardiac Damage Performed By: #### [id number] #### [facility] [address] [place] [address] B NATRIURETIC PEPTIDE Collected: 03/09/2018 Status: F Source: [facility] 12:21 PM HEALTHCARE REPOSITORY TYPE CODE TESTS RESULT OUT OF REFERENCE UNITS RANGE LAB BNP(LOINC) <100 pg/mL B Natriuretic 6 Peptide Performed By: #### [id number] #### [facility] [address] [id number] CKMB Collected: 03/09/2018 Status: F Source: [facility] 12:21 PM REPOSITORY TYPE CODE TESTS RESULT OUT OF RANGE REFERENCE UNITS LAB CKMB(LOINC) ng/mL CKMB 2.0 Result Comment: CKMB <7 AND CKMBI <4% :NEGATIVE CKMB <7 AND CKMBI >4% :EQUIVOCAL CKMB >=7 AND CKMBI <4% :EQUIVOCAL CKMB >=7 AND CKMBI >4% :POSITIVE Performed By: #### [id number] #### [facility] [address] [place] [address] CKMB INDEX Collected: 03/09/2018 Status: F Source: [facility] 12:21 PM REPOSITORY TYPE CODE TESTS RESULT OUT OF RANGE REFERENCE UNITS LAB CKMBI(LOINC % ) CKMB 0.4 Index Performed By: #### [id number] #### [facility] [address] [place] [address] CBC WITH DIFFERENTIAL Collected: 03/09/2018 Status: F Source: [facility] 12:21 PM HEALTHCARE REPOSITORY TYPE CODE TESTS RESULT OUT OF REFERENCE UNITS RANGE LAB WBCIR(LOIN 4.2-11.0 10*3/uL C) WBC 8.2 LAB RBC(LOINC) 4.08-6.37 10*6/uL RBC 5.74 LAB HGB(LOINC) 12.8-17.7 g/dL HGB 16.7 LAB HCT(LOINC) 38.4-54.9 % HCT 47.4 LAB MCV(LOINC) 83.3-98.2 fL MCV Low 82.6 LAB MCH(LOINC) 27.5-32.9 pg MCH 29.1 LAB MCHC(LOINC 30.5-35.4 g/dL ) MCHC 35.2 LAB RDWCV(LOIN 12.0-15.4 % C) RDW CV 13.5 LAB RDWSD(LOIN 39.3-48.6 fL C) RDW SD 40.7 LAB PLTC(LOINC 155-404 10*3/uL ) Platelet Count 249 LAB MPV(LOINC) 9.9-12.1 fL MPV 10.5 LAB NRBCR(LOIN /100{WBCs} C) NRBC Automated 0.0 LAB NRBCA(LOIN 10*3/uL C) NRBC Absolute 0.00 LAB SEGC(LOINC 46.2-79.1 % ) Neutrophils Low 29.0 LAB LYMPC(LOIN 9.4-41.1 % C) Lymphocytes High 46.0 LAB MONOC(LOIN 3.0-16.2 % C) Monocytes 14.0 LAB EOSC(LOINC 0.0-6.7 % ) Eosinophils 1.0 LAB RLYMP(LOIN % C) Reactive Lymphocytes 10.0 LAB PLTR(LOINC ) Platelet Morphology Adequate LAB BAND(LOINC 0.0-4.0 % ) Bands 0.0 Performed By: #### [id number] #### [facility] [address] [place] [address] D DIMER Collected: 03/09/2018 Status: F Source: [facility] 12:21 PM REPOSITORY TYPE CODE TESTS RESULT OUT OF RANGE REFERENCE UNITS LAB DDIMR(LOINC </=500 ng/mL FEU ) D Dimer 439 Result Comment: NOTE NEW REFERENCE RANGE AND UNITS OF 11/03/2017 The VTE Exclusion D-dimer assay is reported in ng/mL Fibrinogen Equivalent Units (FEU). This assay is indicated for use in conjunction with the Guidelines for Emergency Department Use of the VTE Exclusion D-Dimer clinical pretest probability assessment model to exclude deep vein thrombosis (DVT) and pulmonary embolism (PE) disease in outpatients suspected of DVT or PE. Per auto adjudication specialist's instructions for use, a value of less than 500 ng/mL (FEU) may help to exclude DVT and/or PE in outpatients when the assay is used with a clinical pretest probability assessment. Performed By: #### DDIMR #### [facility] [address] [place] [address] PROGRESS Observed: 02/27/2018 Status: COMPLETED Source: [place] 11:26 AM [facility] REPOSITORY HNO ID: [id number] Author: Rob Izaguirre Service: (none) Author Type: Physician Type: Progress Notes Filed: 02/27/2018 11:28 AM Note Text: deepression, on Paxil now, Doing OK on regimen, satisfied to continue Recent labs showed high potassium. BP remains a bit high No past medical history on file. No past surgical history on file. ALLERGIES Asa [Aspirin] MEDICATIONS PARoxetine (PAXIL) 10 mg tablet Take 1 tablet by mouth once daily. benzonatate (TESSALON PERLE) 100 mg capsule Take 1-2 capsules by mouth three times daily as needed. ibuprofen (MOTRIN) 200 mg tablet Take 200 mg by mouth every 6 hours as needed. Blood Pressure Monitor kit Large adult cuff: Dx: (I10) Essential hypertension (primary encounter diagnosis) triamterene-hydrochlorothiazide (DYAZIDE) 37.5-25 mg per capsule Take 1 capsule by mouth once daily. 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 Diet not too healthy PHYSICAL EXAMINATION BP 132/88 Pulse 101 Temp 36.7 ?C (98 ?F) Resp 16 Ht 177.8 cm (5' 10) Wt 93.9 kg (207 lb) SpO2 99% BMI 29.70 kg/m? General: Alert and oriented, no distress, pleasant and cooperative. Heart: Regular, normal S1 and S2, no murmurs, rubs, or gallops Lungs: Clear to auscultation bilaterally Abdomen: Benign Extremities: Feet/ankles without edema, posterior tibial pulses full and symmetrical Assessment/Plan: (E87.5) Serum potassium elevated (primary encounter diagnosis) Comment: will check the lab again Plan: (I10) Essential hypertension Comment: not well controlled. Plan: be sure the potassium is not too high, lab check in next few wks. (F43.23) Adjustment disorder with mixed anxiety and depressed mood (primary encounter diagnosis) Comment: Plan: continue Paxil 10 mg Signed Prescriptions Disp Refills triamterene-hydrochlorothiazide (DYAZIDE) 37.5-25 mg per capsule 30 capsule 5 Sig: Take 1 capsule by mouth once daily. Office Visit on 02/24/18 -BASIC METABOLIC PNL RTO: 3 mos Rob Izaguirre MD CNOV Observed: 02/24/2018 Status: COMPLETED Source: [place] 2:40 PM [facility] REPOSITORY Office Visit (FPWADS) ANTWON PRADHAN ([id number]) 1975 M Date Time Provider Department 02/24/18 2:40 PM ROB IZAGUIRRE During your visit today, we recorded the following information about you: Temperature Pulse Respiration Blood pressure 98 degrees 101/minute 16/minute 132/88 Weight Height 93.9 kg 1.778 m Rob Izaguirre MD 02/27/2018 11:28 AM Signed deepression, on Paxil now, Doing OK on regimen, satisfied to continue Recent labs showed high potassium. BP remains a bit high No past medical history on file. No past surgical history on file. ALLERGIES Asa [Aspirin] MEDICATIONS PARoxetine (PAXIL) 10 mg tablet Take 1 tablet by mouth once daily. benzonatate (TESSALON PERLE) 100 mg capsule Take 1-2 capsules by mouth three times daily as needed. ibuprofen (MOTRIN) 200 mg tablet Take 200 mg by mouth every 6 hours as needed. Blood Pressure Monitor kit Large adult cuff: Dx: (I10) Essential hypertension (primary encounter diagnosis) triamterene-hydrochlorothiazide (DYAZIDE) 37.5-25 mg per capsule Take 1 capsule by mouth once daily. 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 Diet not too healthy PHYSICAL EXAMINATION BP 132/88 Pulse 101 Temp 36.7 ?C (98 ?F) Resp 16 Ht 177.8 cm (5' 10) Wt 93.9 kg (207 lb) SpO2 99% BMI 29.70 kg/m? General: Alert and oriented, no distress, pleasant and cooperative. Heart: Regular, normal S1 and S2, no murmurs, rubs, or gallops Lungs: Clear to auscultation bilaterally Abdomen: Benign Extremities: Feet/ankles without edema, posterior tibial pulses full and symmetrical Assessment/Plan: (E87.5) Serum potassium elevated (primary encounter diagnosis) Comment: will check the lab again Plan: (I10) Essential hypertension Comment: not well controlled. Plan: be sure the potassium is not too high, lab check in next few wks. (F43.23) Adjustment disorder with mixed anxiety and depressed mood (primary encounter diagnosis) Comment: Plan: continue Paxil 10 mg Signed Prescriptions Disp Refills triamterene-hydrochlorothiazide (DYAZIDE) 37.5-25 mg per capsule 30 capsule 5 Sig: Take 1 capsule by mouth once daily. Office Visit on 02/24/18 -BASIC METABOLIC PNL RTO: 3 mos Rob Izaguirre MD Referring Provider: ROB IZAGUIRRE [[id number]] Allergies As of Date: 02/24/2018 Noted Allergy Reaction ASA (ASPIRIN) 06/16/2016 4 - Hives Date Reviewed: 02/24/2018 Reviewed by: Judy Sheldon Ma - Fully Assessed Reason for Visit: Recheck [92] Cmt: medications Primary Visit Diagnosis:Adjustment disorder with mixed anxiety and depressed mood [F43.23] Other Visit Diagnoses:Essential hypertension [I10] Serum potassium elevated [E87.5] Order(s):triamterene-hydrochlorothiazide (DYAZIDE) 37.5-25 mg per capsuleTake 1 capsule by mouth once daily.Disp: 30 capsuleRfl: 5 BASIC METABOLIC PNL [SQBMP] Order #: [id number] FUTURE Prescriptions as of 02/24/2018 Sig: PAROXETINE 10 MG TABLET Take 1 tablet by mouth once d* BENZONATATE 100 MG CAPSULE Take 1-2 capsules by mouth th* IBUPROFEN 200 MG TABLET Take 200 mg by mouth every 6 * BLOOD PRESSURE MONITOR KIT Large adult cuff: Dx: (I10) E* TRIAMTERENE 37.5 MG-HYDROCHLO* Take 1 capsule by mouth once * Problem List As Of Date 02/24/2018 Noted Resolved Essential hypertension [I10] INVALID FOR* Adjustment disorder with mixed anxiety and depr*INVALID FOR* Prescriptions ordered this encounter Disp Refills Start End TRIAMTERENE 37.5 MG-HYDROCHLOROTHIAZ* 30 c* 5 02/24/2018 Route: ORAL Sig: Take 1 capsule by mouth once daily. Medications Discontinued During This Encounter hydroCHLOROthiazide (HYDRODIURIL, ES* 90 t* 3 08/17/2017 02/24/2018 Route: ORAL Sig: Take 1 tablet by mouth once daily. Disc: Reason for discontinue is not on file. Encounter Status:Closed by JANINE IZAGUIRRE MD on 02/27/18 COMP METABOLIC PANEL Collected: 02/03/2018 Status: F Source: [place] 9:10 AM [facility] REPOSITORY TYPE CODE TESTS RESULT OUT OF REFERENCE UNITS RANGE LAB TP 6.3-8.0 g/dL Protein, Total 7.8 LAB ALB 3.9-4.9 g/dL Albumin 4.9 LAB CA 8.5-10.2 mg/dL Calcium, Total 9.4 LAB TBIL 0.2-1.3 mg/dL Bilirubin, Total 0.5 LAB ALKP 36-108 U/L Alkaline Phosphatase 94 LAB AST 14-40 U/L AST 28 LAB GLU 74-99 mg/dL Glucose 77 Result Comment: The [place] [employer] (ADA) provides guidance for cutoff values for fasting glucose and random glucose. The ADA defines fasting as no caloric intake for at least 8 hours. Fas ting plasma glucose results between 100 to 125 mg/dL indicate increased risk for diabetes (prediabetes). Fasting plasma glucose results greater than or equal to 126 mg/dL meet the criteria for diagnosis of diabetes. In the absence of unequivocal hyperglycemia, results should be confirmed by repeat testing. In a patient with classic symptoms of hyperglycemia or hyperglycemic crisis, random plasma glucose results greater than or equal to 200 mg/dL meet the criteria for diagnosis of diabetes. Reference: Standards of Medical Care in Diabetes 2016, [place] [employer]. Diabetes Care. 2016.39(Suppl 1). LAB BUN 9-24 mg/dL BUN 12 LAB CRET 0.73-1.22 mg/dL Creatinine High 1.23 LAB NA 136-144 mmol/L Sodium 142 LAB K 3.7-5.1 mmol/L Potassium High 5.3 LAB CL 97-105 mmol/L Chloride 103 LAB CO2 22-30 mmol/L CO2 25 LAB AGAP 9-18 mmol/L Anion Gap 14 LAB ALT 10-54 U/L ALT 32 LAB GFRAA eGFR- Amer. >60 LAB GFRNAA . eGFR-All Other Races >60 Result Comment: eGFR (Estimated GFR) Units of measure: mL/min/1.73 meters squared eGFR is derived from the reexpressed MDRD Study equation using the following parameters: serum creatinine, age, gender and race. The creatinine assay has been calibrated to be traceable to IDMS. An eGFR <60 mL/min/1.73m2 for >3 months is consistent with chronic kidney disease. Refer to KDOQI guidelines for clinical interpretation. In patients with unstable renal function, e.g. those with acute kidney injury, the eGFR may not accurately reflect actual GFR. Performed By: #### CMP #### [facility] [address] [place], [place] [address] PROGRESS Observed: 02/03/2018 Status: COMPLETED Source: [place] 8:55 AM [facility] REPOSITORY HNO ID: [id number] Author: Rob Izaguirre Service: (none) Author Type: Physician Type: Progress Notes Filed: 02/03/2018 9:54 AM Note Text: Chief Complaint Patient presents with: Medication Check HPI Antwon Pradhan is a 42 year old male who presents here today for follow-up of depression. . Not sleeping well., no appetite, signs of worsening. Prior Rx included Lamictal and Seroquel when he was living in [place]. Past medical history, appointments, medications, allergies reviewed. Previous Medical History No past medical history on file. Previous Surgical History No past surgical history on file. Family History FAMILY HISTORY Problem Relation Age of Onset - Hypertension Father 40 - Diabetes Father 60 Patient Allergies ALLERGIES Allergen Reactions - Asa [Aspirin] Hives Current Medications Current Outpatient Prescriptions on File Prior to Visit: sertraline (ZOLOFT) 50 mg tablet Take 1 tablet by mouth once daily. sertraline (ZOLOFT) 25 mg tablet Take 1 tablet by mouth once daily. benzonatate (TESSALON PERLE) 100 mg capsule Take 1-2 capsules by mouth three times daily as needed. hydroCHLOROthiazide (HYDRODIURIL, ESIDRIX) 25 mg tablet Take 1 tablet by mouth once daily. ibuprofen (MOTRIN) 200 mg tablet Take 200 mg by mouth every 6 hours as needed. Blood Pressure Monitor kit Large adult cuff: Dx: (I10) Essential hypertension (primary encounter diagnosis) No current facility-administered medications on file prior to visit. 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 Diet not too healthy ROS: General: Feels well, no weight changes, fever, chills. HEENT: No sinus congestion, earache, sore throat. Cardiac: No chest pain, palpitations, shortness of breath Resp: No cough, wheeze. GI: No reflux symptoms, food intolerance, bowel changes. : No urinary frequency, dysuria. MS: No pain or joint complaints. PHYSICAL EXAMINATION BP 130/86 Pulse 101 Temp 37.2 ?C (98.9 ?F) Resp 18 Ht 177.8 cm (5' 10) Wt 92.1 kg (203 lb) SpO2 100% BMI 29.13 kg/m? General: Alert and oriented, no distress, pleasant and cooperative. Heart: Regular, normal S1 and S2, no murmurs, rubs, or gallops Lungs: Clear to auscultation bilaterally Abdomen: Benign Extremities: Feet/ankles without edema, posterior tibial pulses full and symmetrical Health Maintenance List LIPID SCREEN due on 07/10/2021 DTAP,TDAP,TD(2 - Td) due on 07/12/2026 INFLUENZA Completed Data reviewed Lab Results Component Value Date/Time CHOL 134 07/10/2016 07:45 AM HDL 46 07/10/2016 07:45 AM LDL 74 07/10/2016 07:45 AM note his creatinine was a bit elevated iin 2015. Assessment/Plan: (F43.23) Adjustment disorder with mixed anxiety and depressed mood (primary encounter diagnosis) Comment: Plan: COMP METABOLIC PANEL, CONSULT TO PSYCHOLOGY (Z79.899) Long-term use of high-risk medication Comment: Plan: COMP METABOLIC PANEL, PARoxetine (PAXIL) 10 mg tablet Try the Paxil. Side effect profile reviewed, alternatives. Signed Prescriptions Disp Refills PARoxetine (PAXIL) 10 mg tablet 30 tablet 2 Sig: Take 1 tablet by mouth once daily. RTO: few wks. Rob Izaguirre MD CNOV Observed: 02/03/2018 Status: COMPLETED Source: [place] 8:40 AM [facility] REPOSITORY Office Visit (FPWADS) ANTWON PRADHAN ([id number]) 1975 M Date Time Provider Department 02/03/18 8:40 AM ROB IZAGUIRRE During your visit today, we recorded the following information about you: Temperature Pulse Respiration Blood pressure 98.9 degrees 101/minute 18/minute 130/86 Weight Height 92.1 kg 1.778 m Rob Izaguirre 02/03/2018 9:54 AM Signed Chief Complaint Patient presents with: Medication Check HPI Antwon Pradhan is a 42 year old male who presents here today for follow-up of depression. . Not sleeping well., no appetite, signs of worsening. Prior Rx included Lamictal and Seroquel when he was living in [place]. Past medical history, appointments, medications, allergies reviewed. Previous Medical History No past medical history on file. Previous Surgical History No past surgical history on file. Family History FAMILY HISTORY Problem Relation Age of Onset - Hypertension Father 40 - Diabetes Father 60 Patient Allergies ALLERGIES Allergen Reactions - Asa [Aspirin] Hives Current Medications Current Outpatient Prescriptions on File Prior to Visit: sertraline (ZOLOFT) 50 mg tablet Take 1 tablet by mouth once daily. sertraline (ZOLOFT) 25 mg tablet Take 1 tablet by mouth once daily. benzonatate (TESSALON PERLE) 100 mg capsule Take 1-2 capsules by mouth three times daily as needed. hydroCHLOROthiazide (HYDRODIURIL, ESIDRIX) 25 mg tablet Take 1 tablet by mouth once daily. ibuprofen (MOTRIN) 200 mg tablet Take 200 mg by mouth every 6 hours as needed. Blood Pressure Monitor kit Large adult cuff: Dx: (I10) Essential hypertension (primary encounter diagnosis) No current facility-administered medications on file prior to visit. 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 Diet not too healthy ROS: General: Feels well, no weight changes, fever, chills. HEENT: No sinus congestion, earache, sore throat. Cardiac: No chest pain, palpitations, shortness of breath Resp: No cough, wheeze. GI: No reflux symptoms, food intolerance, bowel changes. : No urinary frequency, dysuria. MS: No pain or joint complaints. PHYSICAL EXAMINATION BP 130/86 Pulse 101 Temp 37.2 ?C (98.9 ?F) Resp 18 Ht 177.8 cm (5' 10) Wt 92.1 kg (203 lb) SpO2 100% BMI 29.13 kg/m? General: Alert and oriented, no distress, pleasant and cooperative. Heart: Regular, normal S1 and S2, no murmurs, rubs, or gallops Lungs: Clear to auscultation bilaterally Abdomen: Benign Extremities: Feet/ankles without edema, posterior tibial pulses full and symmetrical Health Maintenance List LIPID SCREEN due on 07/10/2021 DTAP,TDAP,TD(2 - Td) due on 07/12/2026 INFLUENZA Completed Data reviewed Lab Results Component Value Date/Time CHOL 134 07/10/2016 07:45 AM HDL 46 07/10/2016 07:45 AM LDL 74 07/10/2016 07:45 AM note his creatinine was a bit elevated iin 2015. Assessment/Plan: (F43.23) Adjustment disorder with mixed anxiety and depressed mood (primary encounter diagnosis) Comment: Plan: COMP METABOLIC PANEL, CONSULT TO PSYCHOLOGY (Z79.458) Long-term use of high-risk medication Comment: Plan: COMP METABOLIC PANEL, PARoxetine (PAXIL) 10 mg tablet Try the Paxil. Side effect profile reviewed, alternatives. Signed Prescriptions Disp Refills PARoxetine (PAXIL) 10 mg tablet 30 tablet 2 Sig: Take 1 tablet by mouth once daily. RTO: few wks. MD Tamara Navarro Jeffery R 02/03/2018 9:03 AM Signed Danii fonseca [facility]. [address] [phone] Phone Referring Provider: SELF [[id number]] Allergies As of Date: 02/03/2018 Noted Allergy Reaction ASA (ASPIRIN) 06/16/2016 4 - Hives Date Reviewed: 02/03/2018 Reviewed by: Judy Sheldon Ma - Fully Assessed Reason for Visit: Medication Check [Other] Primary Visit Diagnosis:Adjustment disorder with mixed anxiety and depressed mood [F43.23] Other Visit Diagnosis:Long-term use of high-risk medication [Z79.899] Order(s):COMP METABOLIC PANEL [SQCMP] Order #: [id number] FUTURE CONSULT TO PSYCHOLOGY [9036] Order #: [id number]: 1 PARoxetine (PAXIL) 10 mg tabletTake 1 tablet by mouth once daily.Disp: 30 tabletRfl: 2 Prescriptions as of 02/03/2018 Sig: BENZONATATE 100 MG CAPSULE Take 1-2 capsules by mouth th* HYDROCHLOROTHIAZIDE 25 MG TAB* Take 1 tablet by mouth once d* IBUPROFEN 200 MG TABLET Take 200 mg by mouth every 6 * BLOOD PRESSURE MONITOR KIT Large adult cuff: Dx: (I10) E* PAROXETINE 10 MG TABLET Take 1 tablet by mouth once d* Problem List As Of Date 02/03/2018 Noted Resolved Essential hypertension [I10] INVALID FOR* Adjustment disorder with mixed anxiety and depr*INVALID FOR* Other instructions from your clinician: Danii fonseca [facility]. [address] [place] [phone] Phone Prescriptions ordered this encounter Disp Refills Start End PAROXETINE 10 MG TABLET 30 t* 2 02/03/2018 Route: ORAL Sig: Take 1 tablet by mouth once daily. Medications Discontinued During This Encounter sertraline (ZOLOFT) 50 mg tablet 30 t* 2 12/29/2017 02/03/2018 Route: ORAL Sig: Take 1 tablet by mouth once daily. Disc: Reason for discontinue is not on file. sertraline (ZOLOFT) 25 mg tablet 30 t* 2 12/29/2017 02/03/2018 Route: ORAL Sig: Take 1 tablet by mouth once daily. Disc: Reason for discontinue is not on file. Encounter Status:Closed by JANINE IZAGUIRRE MD on 02/03/18 GROUP A STREP BY Collected: 12/09/2017 Status: F Source: [facility] 10:36 PM [facility] REPOSITORY TYPE CODE TESTS RESULT OUT OF RANGE REFERENCE UNITS LAB GASSRC Throat Swab GAS Specimen Source LAB PCRGAS Positive for Abnormal Group A Strep Group A Alert PCR Streptococcus by PCR. Result Comment: This test was developed and its performance characteristics determined by [facility]'s [facility] [place] ([facility] It has not been cleared or approved by the FDA. -[facility] is regulated under CLIA as qualified to perform high-complexity testing. This test is used for clinical purposes. It should not be regarded as inv estigational or for research. Performed By: #### GASPCR #### [facility] [address] [address] PROGRESS Observed: 12/09/2017 Status: COMPLETED Source: [place] 7:02 PM [facility] REPOSITORY HNO ID: [id number] Author: Lawrence Greene) Mare Service: (none) Author Type: Nurse Practitioner Type: Progress Notes Filed: 12/09/2017 8:14 PM Note Text: Subjective HPI Patient is a 42 year old male here today for a 10 day history of sore throat. States nasal congestion and cough. States throat pain is consistent through the day. States cough is worse at night. States pain is mostly on the left side. Nothing makes it better or worse. No other concerns at this time. Review of Systems Constitutional: Negative for chills, fever and malaise/fatigue. HENT: Positive for congestion and sore throat. Negative for ear pain. Respiratory: Positive for cough. Negative for sputum production, shortness of breath and wheezing. Cardiovascular: Negative. Gastrointestinal: Negative for nausea and vomiting. Musculoskeletal: Negative for myalgias. Endo/Heme/Allergies: Negative for environmental allergies. All other systems reviewed and are negative. No past medical history on file. No past surgical history on file. ALLERGIES Asa [Aspirin] MEDICATIONS sertraline (ZOLOFT) 50 mg tablet TAKE 1 TABLET BY MOUTH ONCE DAILY. sertraline (ZOLOFT) 25 mg tablet TAKE 1 TABLET BY MOUTH ONCE DAILY. hydroCHLOROthiazide (HYDRODIURIL, ESIDRIX) 25 mg tablet Take 1 tablet by mouth once daily. ibuprofen (MOTRIN) 200 mg tablet Take 200 mg by mouth every 6 hours as needed. Blood Pressure Monitor kit Large adult cuff: Dx: (I10) Essential hypertension (primary encounter diagnosis) FAMILY HISTORY Problem Relation Age of Onset - Hypertension Father 40 - Diabetes Father 60 Social History Substance Use Topics - Smoking status: Current Every Day Smoker - Smokeless tobacco: Never Used - Alcohol use No BP 130/80 Pulse 82 Temp 36.6 ?C (97.9 ?F) (Left Tympanic) Wt 93.9 kg (207 lb) SpO2 97% BMI 29.7 kg/m2 Objective Physical Exam Constitutional: He is well-developed, well-nourished, and in no distress. Vital signs are normal. Mildly ill. HENT: Head: Normocephalic and atraumatic. Right Ear: Tympanic membrane, external ear and ear canal normal. Left Ear: Tympanic membrane, external ear and ear canal normal. Nose: Mucosal edema and rhinorrhea present. Right sinus exhibits no maxillary sinus tenderness and no frontal sinus tenderness. Left sinus exhibits no maxillary sinus tenderness and no frontal sinus tenderness. Mouth/Throat: Uvula is midline, oropharynx is clear and moist and mucous membranes are normal. No oropharyngeal exudate, posterior oropharyngeal edema or posterior oropharyngeal erythema. Neck: Neck supple. Cardiovascular: Normal rate, regular rhythm and normal heart sounds. Pulmonary/Chest: Effort normal and breath sounds normal. He has no wheezes. He has no rales. Lymphadenopathy: Head (right side): No submental, no submandibular and no tonsillar adenopathy present. Head (left side): No submental, no submandibular and no tonsillar adenopathy present. He has no cervical adenopathy. Submandibular fullness. Neurological: He is alert. Skin: Skin is warm and dry. Nursing note and vitals reviewed. ASSESSMENT/PLAN: 1. Sore throat - ICD9: 462, ICD10: J02.9 (primary diagnosis) - suspect viral - Rapid Strep negative in the office today and Throat culture pending - overnight throat culture pending - Discussed supportive care treatment with fluids, rest and analgesia. - The patient should follow up in 3-5 days if symptoms persist or worsen - RAPID STREP TEST B/O 2. Viral URI with cough - ICD9: 465.9, ICD10: J06.9, B97.89 - Discussed viral etiology and rationale for treatment. - Symptomatic treatment with prn analgesia - Supportive care with fluids and rest - The patient may also use warm salt water gargles, throat lozenges and/or OTC throat spray as needed. - Follow up in 3-5 days if symptoms persist or sooner if worsening of symptoms - GROUP A STREPTOCOCCUS BY PCR - BENZONATATE 100 MG CAPSULE - PREDNISONE 20 MG TABLET Prescription instructions reviewed with patient as applicable. Patient advised if symptoms do not improve or if symptoms worsen sooner, to contact their primary care physician. Potential red flag symptoms discussed with the patient. Reviewed appropriate action plan to take if red flag symptoms occur. Patient agreeable to treatment plan. Lawrence Garvey CNP CNOV Observed: 12/09/2017 Status: COMPLETED Source: [place] 6:30 PM [facility] REPOSITORY Office Visit ([facility]) ANTWON PRADHAN ([id number]) 1975 M Date Time Provider Department 12/09/17 6:30 PM LAWRENCE GARVEY ([place]IL[place]) [facility] During your visit today, we recorded the following information about you: Temperature Pulse Blood pressure Weight 97.9 degrees 82/minute 130/80 93.9 kg Lawrence Garvey CNP 12/09/2017 8:14 PM Signed Subjective HPI Patient is a 42 year old male here today for a 10 day history of sore throat. States nasal congestion and cough. States throat pain is consistent through the day. States cough is worse at night. States pain is mostly on the left side. Nothing makes it better or worse. No other concerns at this time. Review of Systems Constitutional: Negative for chills, fever and malaise/fatigue. HENT: Positive for congestion and sore throat. Negative for ear pain. Respiratory: Positive for cough. Negative for sputum production, shortness of breath and wheezing. Cardiovascular: Negative. Gastrointestinal: Negative for nausea and vomiting. Musculoskeletal: Negative for myalgias. Endo/Heme/Allergies: Negative for environmental allergies. All other systems reviewed and are negative. No past medical history on file. No past surgical history on file. ALLERGIES Asa [Aspirin] MEDICATIONS sertraline (ZOLOFT) 50 mg tablet TAKE 1 TABLET BY MOUTH ONCE DAILY. sertraline (ZOLOFT) 25 mg tablet TAKE 1 TABLET BY MOUTH ONCE DAILY. hydroCHLOROthiazide (HYDRODIURIL, ESIDRIX) 25 mg tablet Take 1 tablet by mouth once daily. ibuprofen (MOTRIN) 200 mg tablet Take 200 mg by mouth every 6 hours as needed. Blood Pressure Monitor kit Large adult cuff: Dx: (I10) Essential hypertension (primary encounter diagnosis) FAMILY HISTORY Problem Relation Age of Onset - Hypertension Father 40 - Diabetes Father 60 Social History Substance Use Topics - Smoking status: Current Every Day Smoker - Smokeless tobacco: Never Used - Alcohol use No BP 130/80 Pulse 82 Temp 36.6 ?C (97.9 ?F) (Left Tympanic) Wt 93.9 kg (207 lb) SpO2 97% BMI 29.7 kg/m2 Objective Physical Exam Constitutional: He is well-developed, well-nourished, and in no distress. Vital signs are normal. Mildly ill. HENT: Head: Normocephalic and atraumatic. Right Ear: Tympanic membrane, external ear and ear canal normal. Left Ear: Tympanic membrane, external ear and ear canal normal. Nose: Mucosal edema and rhinorrhea present. Right sinus exhibits no maxillary sinus tenderness and no frontal sinus tenderness. Left sinus exhibits no maxillary sinus tenderness and no frontal sinus tenderness. Mouth/Throat: Uvula is midline, oropharynx is clear and moist and mucous membranes are normal. No oropharyngeal exudate, posterior oropharyngeal edema or posterior oropharyngeal erythema. Neck: Neck supple. Cardiovascular: Normal rate, regular rhythm and normal heart sounds. Pulmonary/Chest: Effort normal and breath sounds normal. He has no wheezes. He has no rales. Lymphadenopathy: Head (right side): No submental, no submandibular and no tonsillar adenopathy present. Head (left side): No submental, no submandibular and no tonsillar adenopathy present. He has no cervical adenopathy. Submandibular fullness. Neurological: He is alert. Skin: Skin is warm and dry. Nursing note and vitals reviewed. ASSESSMENT/PLAN: 1. Sore throat - ICD9: 462, ICD10: J02.9 (primary diagnosis) - suspect viral - Rapid Strep negative in the office today and Throat culture pending - overnight throat culture pending - Discussed supportive care treatment with fluids, rest and analgesia. - The patient should follow up in 3-5 days if symptoms persist or worsen - RAPID STREP TEST B/O 2. Viral URI with cough - ICD9: 465.9, ICD10: J06.9, B97.89 - Discussed viral etiology and rationale for treatment. - Symptomatic treatment with prn analgesia - Supportive care with fluids and rest - The patient may also use warm salt water gargles, throat lozenges and/or OTC throat spray as needed. - Follow up in 3-5 days if symptoms persist or sooner if worsening of symptoms - GROUP A STREPTOCOCCUS BY PCR - BENZONATATE 100 MG CAPSULE - PREDNISONE 20 MG TABLET Prescription instructions reviewed with patient as applicable. Patient advised if symptoms do not improve or if symptoms worsen sooner, to contact their primary care physician. Potential red flag symptoms discussed with the patient. Reviewed appropriate action plan to take if red flag symptoms occur. Patient agreeable to treatment plan. Lawrence Garvey CNP Referring Provider: SELF [200] Allergies As of Date: 12/09/2017 Noted Allergy Reaction ASA (ASPIRIN) 06/16/2016 4 - Hives Date Reviewed: 12/09/2017 Reviewed by: Lawrence (Wilber) Mare - Fully Assessed Reason for Visit: Sore Throat [200] Primary Visit Diagnosis:Sore throat [J02.9] Other Visit Diagnosis:Viral URI with cough [J06.9, B97.89] Order(s):RAPID STREP TEST B/O [[id number]] Order #: [id number] GROUP A STREPTOCOCCUS BY PCR [SQGASPCR] Order #: [id number] benzonatate (TESSALON PERLE) 100 mg capsuleTake 1- 2 capsules by mouth three times daily as needed.Disp: 30 capsuleRfl: 0 predniSONE (DELTASONE) 20 mg tabletTake 2 tablets by mouth once daily for 1 day.Disp: 2 tabletRfl: 0 Prescriptions as of 12/09/2017 Sig: SERTRALINE 50 MG TABLET TAKE 1 TABLET BY MOUTH ONCE D* SERTRALINE 25 MG TABLET TAKE 1 TABLET BY MOUTH ONCE D* HYDROCHLOROTHIAZIDE 25 MG TAB* Take 1 tablet by mouth once d* IBUPROFEN 200 MG TABLET Take 200 mg by mouth every 6 * BENZONATATE 100 MG CAPSULE Take 1-2 capsules by mouth th* PREDNISONE 20 MG TABLET Take 2 tablets by mouth once * BLOOD PRESSURE MONITOR KIT Large adult cuff: Dx: (I10) E* Problem List As Of Date 12/09/2017 Noted Resolved Essential hypertension [I10] INVALID FOR* Adjustment disorder with mixed anxiety and depr*INVALID FOR* Prescriptions ordered this encounter Disp Refills Start End BENZONATATE 100 MG CAPSULE 30 c* 0 12/09/2017 Route: ORAL Sig: Take 1-2 capsules by mouth three times daily as needed. PREDNISONE 20 MG TABLET 2 ta* 0 12/09/2017 12/10/2017 Route: ORAL Sig: Take 2 tablets by mouth once daily for 1 day. Encounter Status:Closed by LAWRENCE GARVEY CNP on 12/09/17 ALLERGIES ALLERGIES DATE TYPE / NAME / CODE REACTION SEVERITY SOURCE CODE DRUG HYDROCHLOROTHIAZIDE INTOLERANCE [place] 8 INGREDI/4 [facility] Main [id number]( [place] SNOMED Repository CT) DRUG ASPIRIN HIVES [place] [facility] [id number]( [place] SNOMED Repository CT) ENCOUNTERS ENCOUNTERS ADMIT/DISCHARGE ACCOUNT NUMBER ADMITTING ENCOUNTER LOCATION SOURCE CLASS 08/30/2018 [id number] [facility] ing:US Repository 07/31/2018/07/31/20 [id number] Ambulatory [address] Repository 04/12/2018/04/12/20 [id number] Ambulatory [address] Repository 04/07/2018/04/11/20 [id number] Ambulatory [address] Repository 03/24/2018/03/24/20 [id number] Ambulatory [address] Repository 03/24/2018/03/28/20 [id number] Ambulatory [address] Repository 03/15/2018/03/21/20 [id number] Ambulatory [address] Repository 03/09/2018/03/09/20 [id number] [facility] [address] [facility] ng:EERRoom: CN02Tvd: ER21-A 03/09/2018 [id number] Ambulatory [address] [place] [address] Repository 02/24/2018/02/29/20 [id number] Ambulatory [address] Repository 02/03/2018/02/04/20 [id number] Ambulatory [address] Repository 12/09/2017/12/13/19 [id number] Ambulatory [address] Repository PAYERS PAYERS ENCOUNTER GUARANTOR PAYER SUBSCRIBER SOURCE 08/30/2018 ANTWON Bell [id number] Primary ANTWON Arabella Brandon APOLONIALISA [facility] [id number] [address]Qcu: [phone] Number: Repository [phone] () [id number] Date:[id number] [address]XV: 08/30/2018 Secondary NOT GIVENJESSICA Brandon Insurance:SELF PAY [facility] Number: Effective Repository Date:2018-08-21 03/09/2018 ANTWON PRADHAN Primary [facility] Healthcare ESPEJODOB: Insurance:[address] HEALTHCARE^L^260^^^90 [facility] 0000^XXPolicy Number: [place], [place] [id number] Date:Plan Name:Health 03/09/2018 ANTWON PRADHAN Primary [facility]: Insurance:[facility] Number: [place], [place] [id number]: ([phone]) Date:Plan Name:[place] [id number] ()
== END ==
PROVIDERS: Family Provider Family Medicine; PCP Family Medicine; Referring Provider Internal Medicine Nephrology; Visit Provider Internal Medicine Nephrology
DX: N18.3 Chronic kidney disease, stage 3 (moderate) (principal)
CPT/HCPCS: 76770

== ENCOUNTER → 2022-10-21 | Outpatient (CLI) | payer OTHER, SELFPAY ==
[2022-10-24 08:07] LABS: QNTFERON TB Mitogen Value > 10.00 IU/mL (.); QNTFERON TB Nil Value 0.34 IU/mL (.); QNTFERON TB1+ Ag Value 0.22 IU/mL (.); QNTFERON TB2+ Ag Value 0.23 IU/mL (.)
[2022-10-24 09:22] LABS: Hepatitis B Core Ab Total Negative (Negative); QNTIFERON TB Positive Criteria Negative (Negative)
== END | disposition home or self-care (01) ==
PROVIDERS: PCP Family Medicine; Referring Provider Physician Assistant; Visit Provider Physician Assistant
DX: L40.0 Psoriasis vulgaris (principal)
CPT/HCPCS: 36415; 86480; 86704